=== PATIENT | female | born 1970 | race Caucasian/White ===

== ENCOUNTER 2024-06-04 07:42 | Day surgery (SDC) | payer OTHER ==
[~2024-06-04 07:42] MED LIST: Midazolam 1 MG/ML 2 ML SDV ONE; Propofol 200 MG/20 ML SDV ONE; fentaNYL 50 MCG/ML SDV ONE
[2024-06-04] MEDS: Lactated Ringers 1,000 ML IV SCH (08:04)
[2024-06-04] MEDS ORDERED: Propofol 200 MG/20 ML SDV ONE (08:46)
[2024-06-04 10:43] VITALS: BP 113/75; PULSE 87
== END 2024-06-04 10:44 | disposition home or self-care (01) ==
LOC: JP.SDS 07:42
PROVIDERS: ATTEND Family Medicine
DX: K29.50 Unspecified chronic gastritis without bleeding (principal); K31.7 Polyp of stomach and duodenum; K52.9 Noninfective gastroenteritis and colitis, unspecified
CPT/HCPCS: 00813; 43239; 45380; J2250; J2704; J3010; J7120; 88305